=== PATIENT | male | born 1960 | race African-American/Black ===

== ENCOUNTER 2018-09-17 07:30 | Day surgery (SDC) | payer BC ==
[~2018-09-17] VITALS: Ht 175.3 cm; Wt 97.5 kg
[~2018-09-17 07:30] MED LIST: AMLO10TA6 PO; ASCO250T PO; CHOL100013 PO; FLUT16SP NS; HYDROmorphone 2 MG/ML VIAL IV PRN; IV RINGERS,LACTATED 1000ML 1,000 ML IV SCH; LIDOCAINE 1% PF 2 ML VIAL. ID PRN; LISI1TAB5 PO; LOVA20TA2 PO; MELO15TA23 PO; MORPHINE SULFATE 2 MG/ML VIAL. IV PRN; ONDANSETRON PF 4 MG/2 ML VIAL. IV PRN; PROCHLORPERAZINE 10 MG/2 ML VIAL. IV PRN; SILD20TA2 PO; fentaNYL PF VIAL 100 MCG/2 ML VIAL IV PRN
[2018-09-17] MEDS ORDERED: BUPIVACAINE MPF 0.5% 30 ML VIAL. ONE (08:31)
[2018-09-17] MEDS ORDERED: LIDOCAINE 1% PF 30 ML VIAL. ONE (08:31)
[2018-09-17] MEDS ORDERED: ONDANSETRON PF 4 MG/2 ML VIAL. ONE (08:32)
[2018-09-17] MEDS ORDERED: DEXAMETHASONE SOD PHOS 20 MG/5 ML VIAL. ONE (08:32)
[2018-09-17] MEDS ORDERED: PROPOFOL 20 ML IV ONE (08:32)
[2018-09-17] MEDS ORDERED: LIDOCAINE 2% PF Vial for OR 5 ML VIAL. ONE (08:32)
[2018-09-17] MEDS ORDERED: fentaNYL PF VIAL 100 MCG/2 ML VIAL ONE ×2 (08:40→09:52)
[2018-09-17] MEDS ORDERED: MIDAZOLAM HCL/PF 2 MG/2 ML VIAL. ONE (08:40)
[2018-09-17] MEDS ORDERED: LIDOCAINE 1% Multi-Dose 20 ML VIAL. ONE (08:52)
--- NOTE | 2018-09-17 09:43 | DISCH ---
DISCHARGE INSTRUCTIONS Condition on Discharge Condition on Discharge: Stable Activity After Discharge Activity Instructions for Disc: Other ROM activity Other activity instructions: wiggle fingers Bathing Instructions: Shower-keep dressing dry Weight Bearing Status after Di: Non weight bearing Diet after Discharge Diet after Discharge: Regular Wound Incision Care Wound/Incision Care: Ice to area for comfort, Keep wound/cast CDI, Keep wound elevated, Change dressing Contacting the DR. after DC Call your doctor for: Concerns you may have Follow-Up Follow up with: Mira in 2 wks SERGO AMES II, MD Sep 17, 2018 09:43
--- NOTE | 2018-09-17 09:45 | PDOC4 ---
Operative Note Operative Note Date of procedure: 09/17/2018 Surgeon: Vinicio Ames Preoperative diagnosis: Right carpal tunnel syndrome Postoperative diagnosis: Same Procedure performed: Open right carpal tunnel release Anesthesia: [place] block Findings: Normal-appearing nerve Tourniquet time: 25 minutes Complications: None Blood loss: 2 mL Reason for procedure: patient is a very pleasant gentleman who I have been following for some time for his carpal tunnel syndrome. He has had an EMG which confirmed the diagnosis and we had tried conservative therapies including anti- inflammatories, response, and injections which gave him some good initial relief. Due to his persistent symptoms, we had a discussion of the risks, benefits, alternatives to the above surgery and he wished to proceed. Description of procedure: Patient was greeted in the preoperative area by myself for the correct extremity was verified and marked. The patient was taken to the operative suite and antibiotics started as a were brought back. Once in the operative room, the patient was transferred gently supine to the operating table and secured to bed with all pressure points padded. The hand board attachment was secured to the operating table. The anesthesiology team placed a [place] block. After allowing this to set up, the right upper extremity was then prepped and draped in our usual sterile fashion we conducted our standard preoperative timeout. After this, I inspected the palm and made an incision from the distal wrist crease into the palm through a palmar crease. I used bipolar cautery for hemostasis. I used a tenotomy scissors to spread down to the palmar fascia and placed my self-retaining retractor. Palmar fascia was incised in line with the skin incision. Identified the transverse carpal ligament and took this down with a scalpel. I then placed a [place] retractor at the distal portion of the incision, spread above and below a small portion of the remainder of the transverse carpal ligament and release this into the palm. I then repeated this maneuver and an ulnar directed fashion at the proximal portion of the incision to release the distal antebrachial fascia. After this, used the tip of his tenotomy scissors to palpate along the course of the nerve to help try to accomplish a complete release. I then irrigated out the wound and closed skin with simple interrupted 3-0 nylon. The arm and hand were cleansed and dried and a sterile bulky dressing was applied. The tourniquet was let down. The patient was awakened from sedation and transferred gently supine to the recovery room cart and taken to PACU in a stable and extubated condition. Wound care was given and written form and discussed with the patients family. Active range of motion at fingers and wrist was encouraged. I will see the patient back here in 2-3 weeks, sooner should a problem arise. The patient will be discharged home today. VINICIO AMES II, MD Sep 17, 2018 09:45
[2018-09-17] MEDS ORDERED: HYDROcodone/APAP 5/325MG 1 TAB TABLET PO ONE (10:15)
[2018-09-17 10:55] VITALS: BP 118/73
== END 2018-09-17 10:55 | disposition home or self-care (01) ==
LOC: SURG 07:30
PROVIDERS: ATTEND Orthopaedic Surgery Sports Medicine
DX: G56.01 Carpal tunnel syndrome, right upper limb (principal); E78.5 Hyperlipidemia, unspecified; Z85.46 Personal history of malignant neoplasm of prostate; M17.0 Bilateral primary osteoarthritis of knee; Z90.79 Acquired absence of other genital organ(s); Z98.890 Other specified postprocedural states; Z82.49 Family history of ischemic heart disease and other diseases of the circulatory system; Z72.89 Other problems related to lifestyle; Z83.3 Family history of diabetes mellitus; Z79.899 Other long term (current) drug therapy
CPT/HCPCS: 64721; J0690; J1100; J2001; J2250; J2405; J2704; J3010; J3490

== ENCOUNTER → 2019-03-14 | Outpatient (CLI) | payer BC ==
[~2019-03-14] MED LIST changes: -AMLO10TA6 PO; +AMLO10TA8 PO; -HYDROmorphone 2 MG/ML VIAL IV PRN; -IV RINGERS,LACTATED 1000ML 1,000 ML IV SCH; -LIDOCAINE 1% PF 2 ML VIAL. ID PRN; -MORPHINE SULFATE 2 MG/ML VIAL. IV PRN; -ONDANSETRON PF 4 MG/2 ML VIAL. IV PRN; -PROCHLORPERAZINE 10 MG/2 ML VIAL. IV PRN; -fentaNYL PF VIAL 100 MCG/2 ML VIAL IV PRN
--- NOTE | 2019-03-14 14:19 | KCIC ---
MR of the right hip HISTORY: Right hip pain for a couple weeks, no known injury. TECHNIQUE: Routine multiplanar sequences are obtained. FINDINGS: No bone destruction, acute fracture or marrow edema. No femoral head osteonecrosis. Degenerative changes at the right hip with cartilage loss. Subchondral cyst at the acetabulum. Labral degeneration without clear-cut detachment. Gluteus minimus and medius tendons are intact. Hamstring tendon intact. Iliopsoas tendon is intact. Rectus femoris tendon attachment intact. No acute muscle pathology. No acute soft tissue abnormality. Large [id number] coronal STIR sequence also demonstrates degenerative change at the left hip. IMPRESSION: 1. Primary osteoarthritis. 2. Diffuse labral degeneration. Electronically signed by: Darien Interiano MD (03/14/2019 2:16 PM) [id number]
== END | disposition home or self-care (01) ==
LOC: KCIC MRI 13:04
PROVIDERS: ATTEND Family Medicine
DX: M16.11 Unilateral primary osteoarthritis, right hip (principal)
CPT/HCPCS: 73721